=== PATIENT | male | born 1950 | race Two or more races ===

== ENCOUNTER 2023-12-16 09:35 | Outpatient (CLI) | payer OTHER, BC | END 2023-12-16 10:00 | disposition home or self-care (01) | LOC: WOUND MED 09:35 | PROVIDERS: ATTEND Specialist | DX: L02.413 Cutaneous abscess of right upper limb (principal) | CPT/HCPCS: 11042; A4927; A6021; A6223 ==

== ENCOUNTER 2023-12-20 07:15 | Outpatient (CLI) | payer OTHER, BC | END 2023-12-20 08:30 | disposition home or self-care (01) | LOC: WOUND MED 07:15 | PROVIDERS: ATTEND Specialist | DX: L02.413 Cutaneous abscess of right upper limb (principal) | CPT/HCPCS: 97602; A4927; A6219; A6223; A6251 ==

== ENCOUNTER 2023-12-23 08:57 | Outpatient (CLI) | payer OTHER, BC | END 2023-12-23 09:43 | disposition home or self-care (01) | LOC: WOUND MED 08:57 → WOUND CARE 08:57 → WOUND MED 09:43 | PROVIDERS: ATTEND Specialist | DX: L02.413 Cutaneous abscess of right upper limb (principal) | CPT/HCPCS: 11042; A4927; A6219; A6223 ==

== ENCOUNTER 2023-12-27 07:11 | Outpatient (CLI) | payer OTHER, BC | END 2023-12-27 08:16 | disposition home or self-care (01) | LOC: WOUND MED 07:11 → WOUND CARE 07:11 → EDSTATUS 07:45 → WOUND CARE 07:45 → WOUND MED 08:16 | PROVIDERS: ATTEND Specialist | DX: L02.413 Cutaneous abscess of right upper limb (principal) | CPT/HCPCS: 97602; A4927; A6021; A6223 ==

== ENCOUNTER 2023-12-30 08:09 | Outpatient (CLI) | payer OTHER, BC | END 2024-01-04 11:00 | disposition home or self-care (01) | LOC: WOUND MED 08:09 → WOUND CARE 08:09 → WOUND MED 01-04 11:00 | PROVIDERS: ATTEND Specialist | DX: L02.413 Cutaneous abscess of right upper limb (principal) | CPT/HCPCS: A4927; A6223; G0463 ==